=== PATIENT | male | born 1995 | race Caucasian/White ===

== ENCOUNTER 2025-02-14 14:43 | Inpatient (IN) | payer OTHER ==
[~2025-02-14] VITALS: Ht 185.4 cm; Wt 102.7 kg
[2025-02-14] MEDS ORDERED: LEVO137T24 PO (15:47)
[2025-02-14] MEDS ORDERED: BENZ-247 PO (15:47)
[2025-02-14] MEDS ORDERED: OMEP-148 PO (15:47)
[2025-02-14] MEDS ORDERED: PROP10TA73 PO (15:47)
[2025-02-14] MEDS ORDERED: RISP3TAB77 PO (15:47)
[2025-02-14] MEDS ORDERED: BUPR1TAB46 SL (15:47)
[2025-02-14 18:05] LABS: BASOPHILS % (AUTO) 0.7 % (0.0-2.0); HEMATOCRIT 42.8 % (41-53); HEMOGLOBIN 14.5 g/dL (13.5-17.5); LYMPHOCYTES # (AUTO) 2.1 K/uL (1.0-4.8); LYMPHOCYTES % (AUTO) 25.6 % (22.0-44.0); MEAN CORPUSCULAR HEMOGLOBIN 29.7 pg (26.0-34.0); MEAN CORPUSCULAR VOLUME 88 fL (80-100); MONOCYTES # (AUTO) 1.1 K/uL (0.1-1.0); MONOCYTES % (AUTO) 13.4 % (2.0-9.0); NEUTROPHILS # (AUTO) 4.6 K/uL (1.8-7.7); NEUTROPHILS % (AUTO) 55.3 % (40.0-70.0); PLATELET COUNT (AUTO) 220 K/uL (150-450); RED BLOOD CELL COUNT(AUTO) 4.89 MIL/uL (4.50-5.90); RED CELL DISTRIBUTION WIDTH 13.2 % (11.5-14.5); WHITE BLOOD COUNT (AUTO) 8.4 K/uL (4.5-11.0)
[2025-02-14] MEDS: SODIUM CHLORIDE 0.9% 1,000 ML IV ONE (18:11)
[2025-02-14] MEDS: ONDANSETRON HCL 4 MG/2 ML VIAL IVP ONE (18:11)
[2025-02-14 18:15] LABS: ANION GAP 7 mmol/L (8-16); CALCIUM, TOTAL 8.8 mg/dL (8.8-10.5); CARBON DIOXIDE 33 mmol/L (22-29); CHLORIDE 99 mmol/L (98-107); CREATININE 0.97 mg/dL (0.60-1.30); GLOMERULAR FILTR. RATE CALC > 60 mL/min (>60); GLUCOSE,RANDOM 93 mg/dL (70-110); SODIUM SERUM 139 mmol/L (136-145); UREA NITROGEN, BLOOD 7 mg/dL (7-18)
[2025-02-14 18:20] LABS: ALBUMIN 3.5 g/dL (3.4-5.0); BILIRUBIN,DIRECT 0.1 mg/dL (0.00-0.20); BILIRUBIN,TOTAL 0.6 mg/dL (0.1-1.0); TOTAL PROTEIN, SERUM 7.1 g/dL (6.4-8.2)
[2025-02-14 19:14] LABS: APPEARANCE,URINE CLEAR (CLEAR); BILIRUBIN,URINE NEGATIVE (NEGATIVE); COLOR,URINE COLORLESS (YELLOW); GLUCOSE, URINE (UA) NEGATIVE (NEGATIVE); KETONES,URINE TRACE mg/dL (NEGATIVE); LEUKOCYTE ESTERASE ,URINE NEGATIVE (NEGATIVE); NITRATE,URINE NEGATIVE (NEGATIVE); OCCULT BLOOD,URINE NEGATIVE (NEGATIVE); PROTEIN,URINE NEGATIVE (NEGATIVE); SPECIFIC GRAVITIY, URINE 1.005 (1.003-1.030); UROBILINOGEN,URINE <=1.0 mg/dL (<=1.0)
[2025-02-14] MEDS ORDERED: MAGNESIUM HYDROXIDE SUSPENSION 30 ML UDCUP PO PRN (21:30)
[2025-02-14] MEDS ORDERED: BISACODYL 10 MG RECTAL RECTAL SUPPOSITORY PR PRN (21:30)
[2025-02-14] MEDS ORDERED: ONDANSETRON HCL 4 MG/2 ML VIAL IVP PRN (21:30)
[2025-02-14] MEDS ORDERED: ZOLPIDEM TARTRATE 5 MG TABLET PO PRN (21:30)
[2025-02-14 22:55] VITALS: BP 113/64; PULSE 73; RESP 16; TEMP 97.9; O2SAT 98
[2025-02-14] MEDS: HEPARIN SODIUM,PORCINE 5,000 UNITS/ML VIAL SQ SCH (23:18)
[2025-02-15] VITALS (10 sets, daily range): BP systolic 98–115; BP diastolic 58–66; PULSE 58–77; RESP 18–22; TEMP 97.4–98.4; O2SAT 90–99
[2025-02-15] MEDS ORDERED: SODIUM CHLORIDE 3% 15 ML NEB SOLUTION NEB ONE (05:00)
[2025-02-15] MEDS: ALBUTEROL SULFATE 2.5 MG/0.5 ML NEB SOLUTION NEB PRN (05:03)
[2025-02-15] MEDS: IPRATROPIUM BROMIDE 0.5 MG/2.5 ML NEB SOLUTION NEB PRN (05:03)
[2025-02-15] MEDS: LEVOTHYROXINE SODIUM 137 MCG TABLET PO SCH (05:55)
[2025-02-15] MEDS: OMEPRAZOLE 20 MG CAPSULE PO SCH (08:20)
[2025-02-15] MEDS: DOCUSATE SODIUM 100 MG CAPSULE PO SCH (08:20)
[2025-02-15] MEDS: PANTOPRAZOLE SODIUM 40 MG DR TABLET PO SCH (08:21)
[2025-02-15] MEDS: LACTULOSE 20 GM/30 ML SOLUTION UDCUP PO SCH (08:24)
[2025-02-15] MEDS: TRIAMCINOLONE ACET 55 MCG/SPRAY 16.9 ML NASAL SPRAY NASAL SCH (08:24)
[2025-02-15] MEDS: BUPRENORPHINE HCL/NALOXONE HCL 8-2 MG SUBLINGUAL TABLET SL SCH (08:25)
[2025-02-15] MEDS: PROPRANOLOL HCL 10 MG TABLET PO SCH (09:00)
[2025-02-15] MEDS ORDERED: BACLOFEN 10 MG TABLET PO PRN (12:00)
[2025-02-15] MEDS: BENZTROPINE MESYLATE 1 MG TABLET PO SCH (21:00)
[2025-02-15] MEDS: RisperiDONE 3 MG TABLET PO SCH (21:01)
[2025-02-16] MEDS: ACETAMINOPHEN 325 MG TABLET PO PRN (02:30)
[2025-02-16 04:32] VITALS: BP 125/76; PULSE 71; RESP 19; TEMP 97.3; O2SAT 99
[2025-02-16 05:08] LABS: HEPATITIS C AB (EIA) Non Reactive (Non Reactive)
[2025-02-16 09:43] VITALS: BP 103/56; PULSE 60; RESP 18; TEMP 97.7; O2SAT 96
[2025-02-16] MEDS ORDERED: LACT10SO85 PO (16:01)
[2025-02-16] MEDS ORDERED: TRIA16.911 NASAL (16:02)
[2025-02-16] MEDS ORDERED: ACET-2247 PO (16:03)
[2025-02-16 17:14] VITALS: BP 114/76; PULSE 71
== END 2025-02-16 21:12 | DRG 392 ==
LOC: EMS 14:43 → EDH 21:24 → 6S 22:26
PROVIDERS: ADMIT Hospitalist; ATTEND Hospitalist
PROC: GZ56ZZZ Individual Psychotherapy, Supportive (ICD-10-PCS; principal; 2025-02-15)
DX: R10.13 Epigastric pain (principal); K21.9 Gastro-esophageal reflux disease without esophagitis; K59.00 Constipation, unspecified; R06.6 Hiccough; F25.0 Schizoaffective disorder, bipolar type; J45.909 Unspecified asthma, uncomplicated; I10 Essential (primary) hypertension; E03.9 Hypothyroidism, unspecified; Z88.0 Allergy status to penicillin; Z79.899 Other long term (current) drug therapy
CPT/HCPCS: 74176; 80048; 80076; 81003; 83690; 85025; 86803; 87340; 94640; 96361; 96374; 99285; J1644; J2405; J7030; 36415-L1; 36415-TC; J7613